=== PATIENT | female | born 1995 | race Caucasian/White ===

== ENCOUNTER 2025-10-01 19:25 | Emergency (ER) | payer OTHER ==
[~2025-10-01] VITALS: Ht 170.2 cm; Wt 108.9 kg
[~2025-10-01 19:25] MED LIST: DOXY100 PO; Prednisone20 MG PO
[2025-10-01 19:31] VITALS: BP 135/75
[2025-10-01] MEDS ORDERED: CIPR500 PO (20:53)
== END 2025-10-01 21:09 | disposition home or self-care (01) ==
LOC: ER 19:25
DX: L08.9 Local infection of the skin and subcutaneous tissue, unspecified (principal); F17.210 Nicotine dependence, cigarettes, uncomplicated; Z88.8 Allergy status to other drugs, medicaments and biological substances; Z79.899 Other long term (current) drug therapy
CPT/HCPCS: 99283; A9270